=== PATIENT | female | born 1930 | race Caucasian/White ===

== ENCOUNTER → 2017-01-24 | Outpatient (CLI) | payer MEDICARE, OTHER ==
[2017-01-24 19:00] LABS: ALBUMIN 3.7 GM/DL (3.2-5.2); ALBUMIN/GLOBULIN RATIO 1.06 (1.00-1.93); ALKALINE PHOSPHATASE 81 U/L (45-117); ALT/SGPT 18 U/L (12-78); ANION GAP 8 MEQ/L (8-16); AST/SGOT 16 U/L (7-37); BILIRUBIN,TOTAL 0.3 MG/DL (0.2-1.0); BLOOD UREA NITROGEN 24 MG/DL (7-18); CARBON DIOXIDE LEVEL 29 MEQ/L (21-32); CHLORIDE LEVEL 99 MEQ/L (98-107); CREATININE FOR GFR 0.84 MG/DL (0.55-1.02); GLOMERULAR FILTRATION RATE > 60.0 (>32); GLUCOSE, FASTING 85 MG/DL (83-110); POTASSIUM SERUM 4.6 MEQ/L (3.5-5.1); SODIUM LEVEL 136 MEQ/L (136-145); TOTAL PROTEIN 7.2 GM/DL (6.4-8.2)
[2017-01-24 19:12] LABS: BASO % 0.5 % (0.0-1.0); EOS # 0.1 10^3/uL (0.0-0.50); IMMATURE GRANULOCYTE % 0.2 % (0-0); LYMPH % 14.8 % (24.0-44.0); MEAN CORPUSCULAR HGB CONC 32.4 g/dl (32.0-36.5); MEAN CORPUSCULAR VOLUME 86.6 fl (80.0-96.0); MONO # 0.9 10^3/uL (0.0-0.8); MONO % 13.3 % (0.0-5.0); NEUTROPHILS # 4.4 10^3/uL (1.8-7.7); NEUTROPHILS % 69.2 % (36.0-66.0); PLATELET COUNT, AUTOMATED 385 10^3/uL (150-450); WHITE BLOOD COUNT 6.4 10^3/uL (4.0-10.0)
== END ==
LOC: M WUC 10:40
PROVIDERS: ATTEND Family Medicine
DX: E55.9 Vitamin D deficiency, unspecified (principal); I10 Essential (primary) hypertension

== ENCOUNTER 2018-04-28 05:58 | Inpatient (IN) | payer MEDICARE, OTHER ==
[2018-04-28] MEDS ORDERED: PANT20TA2 PO (06:11)
[2018-04-28] MEDS ORDERED: DICL75TA PO (06:11)
[2018-04-28] MEDS ORDERED: CLOP75TA2 PO (06:11)
[2018-04-28] MEDS ORDERED: LOSA100T50 PO (06:11)
[2018-04-28] MEDS ORDERED: PRAV40TA2 PO (06:11)
--- NOTE | 2018-04-28 07:01 | REPVR ---
EXAM: CT Cervical Spine Without Contrast EXAM DATE/TIME: 04/28/2018 6:28 AM CLINICAL HISTORY: 87 years old, female; Injury or trauma; Fall; Late effect from previous injury; Abrasion; Additional info: Hematoma TECHNIQUE: Axial computed tomography images of the cervical spine without intravenous contrast. All CT scans at this facility use at least one of these dose optimization techniques: automated exposure control; mA and/or kV adjustment per patient size (includes targeted exams where dose is matched to clinical indication); or iterative reconstruction. Coronal and sagittal reformatted images were created and reviewed. COMPARISON: No relevant prior studies available. FINDINGS: Vertebrae: No acute fracture. Normal alignment. Discs/Spinal canal/Neural foramina: There are advanced multilevel degenerative changes including disc space narrowing, ventral ridging, uncovertebral joint arthropathy, and hypertrophic spur formation, all of which contribute to significant multilevel spinal canal and neural foraminal stenosis. Soft tissues: Unremarkable. Lungs: There are bilateral centrilobular emphysematous changes. There is presumed scarring at both lung apices, right worse than left. Vasculature: There are calcified atherosclerotic changes of the cervical carotid arteries. IMPRESSION: There are advanced multilevel degenerative changes including disc space narrowing, ventral ridging, uncovertebral joint arthropathy, and hypertrophic spur formation, all of which contribute to significant multilevel spinal canal and neural foraminal stenosis. Full evaluation of the intervertebral discs and intraspinal contents is limited with CT imaging. Clinical findings will determine the need for further evaluation with MRI imaging. Electronically signed by: Bear Hobbs On 04/28/2018 07:01:29 AM
--- NOTE | 2018-04-28 07:03 | REPVR ---
EXAM: CT Head Without Contrast EXAM DATE/TIME: 04/28/2018 6:28 AM CLINICAL HISTORY: 87 years old, female; Injury or trauma; Fall; Late effect from previous injury; Abrasion; Not specified; Additional info: Hematoma TECHNIQUE: Axial computed tomography images of the head/brain without contrast. All CT scans at this facility use at least one of these dose optimization techniques: automated exposure control; mA and/or kV adjustment per patient size (includes targeted exams where dose is matched to clinical indication); or iterative reconstruction. COMPARISON: No relevant prior studies available. FINDINGS: Brain: There is minimal right parietal subarachnoid hemorrhage. There is a very thin left temporoparietal subdural hematoma. There is no midline shift. Ventricles: Normal. No ventriculomegaly. Bones/joints: See Soft Tissues Finding. Sinuses: Visualized sinuses are unremarkable. No acute sinusitis. Mastoid air cells: Visualized mastoid air cells are unremarkable. No mastoid effusion. Soft tissues: There is a right frontal/parietal scalp hematoma. There is no underlying fracture. IMPRESSION: There is minimal right parietal subarachnoid hemorrhage. There is a very thin left temporoparietal subdural hematoma. There is no midline shift. Close clinical and imaging followup is recommended to confirm resolution following treatment. Electronically signed by: Bear Hobbs On 04/28/2018 07:03:40 AM
--- NOTE | 2018-04-28 07:04 | REP ---
Clinical: Syncope/near-syncopal episode . Comparison: None . Findings: The mediastinum and cardiac silhouette are stable and within normal limits for portable technique. The lung rascon demonstrate chronic-appearing interstitial changes without acute consolidation, effusion, or pneumothorax. Skeletal structures are intact. Impression: No acute cardiopulmonary process appreciated. Electronically Signed by Jose Francisco Cheung MD 04/28/2018 06:56 A
[2018-04-28 07:09] LABS: BASO # 0.1 10^3/uL (0.0-0.2); BASO % 0.2 % (0.0-1.0); EOS % 0.2 % (0.0-3.0); HEMATOCRIT 40.7 % (36.0-47.0); HEMOGLOBIN 13.1 g/dl (12.0-15.5); MEAN CORPUSCULAR HGB CONC 32.2 g/dl (32.0-36.5); MEAN CORPUSCULAR VOLUME 96.2 fl (80.0-96.0); MONO # 0.8 10^3/uL (0.0-0.8); MONO % 3.8 % (0.0-5.0); NEUTROPHILS # 20.4 10^3/uL (1.8-7.7); NEUTROPHILS % 94.2 % (36.0-66.0); PLATELET COUNT, AUTOMATED 274 10^3/uL (150-450); RED BLOOD COUNT 4.23 10^6/uL (4.00-5.40); WHITE BLOOD COUNT 21.6 10^3/uL (4.0-10.0)
[2018-04-28] MEDS ORDERED: ONDANSETRON 4MG/2ML VIAL (J2405) IV ONE (07:30)
[2018-04-28 07:58] LABS: LYMPH # 0.2 10^3/uL (1.5-4.5)
[2018-04-28 08:08] LABS: BLOOD UREA NITROGEN 43 MG/DL (7-18); CALCIUM LEVEL 8.7 MG/DL (8.8-10.2); CARBON DIOXIDE LEVEL 25 MEQ/L (21-32); CHLORIDE LEVEL 105 MEQ/L (98-107); CPK CREATINE PHOSPHOKINASE 101 U/L (26-192); CREATININE FOR GFR 0.94 MG/DL (0.55-1.30); GLOMERULAR FILTRATION RATE > 60.0 (>32); GLUCOSE, FASTING 100 MG/DL (70-100); MB/CK RELATIVE INDEX 1.29 (< OR =4); POTASSIUM SERUM 5.4 MEQ/L (3.5-5.1); SODIUM LEVEL 141 MEQ/L (136-145); TROPONIN I < 0.02 NG/ML (< 0.10)
[2018-04-28] MEDS ORDERED: NS 500 ML IV ONE ×2 (08:45→20:45)
[2018-04-28] MEDS ORDERED: patient comment (09:03)
[2018-04-28] MEDS ORDERED: ALEV220T26 PO (09:27)
[2018-04-28] MEDS ORDERED: REFR0.5D8 OU (09:27)
[2018-04-28] MEDS ORDERED: VITA400T PO (09:27)
[2018-04-28] MEDS ORDERED: ONDANSETRON 4MG/2ML VIAL (J2405) IV PRN (10:15)
[2018-04-28 11:05] VITALS: BP 104/58
--- NOTE | 2018-04-28 11:44 | ECGEPIP ---
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
[2018-04-28] MEDS ORDERED: SLF 3 ML SYR IV PRN (13:45)
[2018-04-28 15:05] LABS: FREE T3 1.6 PG/ML (2.2-4.0); FREE T4 1.05 NG/DL (0.76-1.46)
[2018-04-28 16:00] VITALS: BP 116/67
--- NOTE | 2018-04-28 16:39 | HPEPDOC ---
General Date of Admission Apr 28, 2018 at 10:02 Chief Complaint The patient is a 87-year-old female admitted with a reason for visit of Subarach noid Hemorrhage. History of Present Illness 87-year-old woman with a past medical history of hypertension, dyslipidemia, GERD, and recurrent TIAs presented to the ER after a fall at home. The patient and her son, who was at the bedside stated the patient was on the toilet having a bowel movement. The patient notes that she was feeling constipated and was straining.The next thing the patient and caregiver noticed was the patient falling forward. She states that she fell head first on the right side. The patient denied any recent complaints of fevers, chills, chest pain, palpitations, abdominal pain, or any jerking activity, tongue biting, and history of seizures. She was brought to the ER for further evaluation and management. In the ER, a CT scan of the head revealed minimal right parietal subarachnoid hemorrhage and a very thin left temporal parietal subdural hematoma. Transfer to [facility] was discussed with the patient and her son extensively at the [facility] by the ER provider and myself. However, the patient and her son state that they would not want any invasive measures to be done, and would like to monitor the patient at [facility]. Home Medications Scheduled Carboxymethylcellulose Sodium (Refresh Tears) 0.5 % Aravind, 1 DROP OU DAILY, (Reported) Cholecalciferol (Vitamin D3) 400 Unit Tab, 800 UNIT PO DAILY, (Reported) Losartan Potassium (Losartan Potassium) 100 Mg Tab, 100 MG PO DAILY, (Reported) Naproxen Sodium (Aleve) 220 Mg Tab, 220 MG PO QHS, (Reported) Pantoprazole Sodium (Pantoprazole Sodium) 20 Mg Tab, 20 MG PO DAILY, (Reported) Pravastatin Sod (Pravastatin Sodium) 40 Mg Tab, 40 MG PO QHS, (Reported) Scheduled PRN Diclofenac Sodium (Diclofenac Sodium Dr) 75 Mg Tab, 75 MG PO BID PRN for PAIN, (Reported) Allergies Coded Allergies: No Known Allergies (Unverified , 04/28/18) Past Medical History Medical History As noted in HPI. Social History * Smoker: Denies Alcohol: Denies Drugs: denies Review of Systems Other systems 10 point review of systems negative unless otherwise specified in HPI. Physical Examination General Exam: Positive: Alert, Cooperative, No Acute Distress Eye Exam: Positive: PERRLA ENT Exam: Positive: Mucous membr. moist/pink, Other ENT (contusion noted on the right side of the forehead above the eye.) Neck Exam: Negative: JVD Chest Exam: Positive: Clear to auscultation, Normal air movement Heart Exam: Positive: Rate Normal, Normal S1, Normal S2 Telemetry: Positive: Sinus Abdomen Exam: Positive: Soft; Negative: Tenderness Extremity Exam: Negative: Tenderness, Swelling Neuro Exam: Positive: Strength at 5/5 X4 ext Vital Signs Vital Signs Date Time Temp Pulse Resp B/P (MAP) Pulse Ox O2 Delivery O2 Flow Rate FiO2 04/28/18 16:00 98.1 93 18 116/67 (83) 95 04/28/18 10:53 Room Air Laboratory Data Labs 24H Laboratory Tests 2 04/28/18 06:57: Immature Granulocyte % (Auto) 0.6, White Blood Count 21.6H, Red Blood Count 4 .23, Hemoglobin 13.1, Hematocrit 40.7, Mean Corpuscular Volume 96.2H, Mean Corpuscular Hemoglobin 31.0, Mean Corpuscular Hemoglobin Concent 32.2, Red Cell Distribution Width 14.7H, Platelet Count 274, Neutrophils (%) (Auto) 94.2H, Lymphocytes (%) (Auto) 1.0L, Monocytes (%) (Auto) 3.8, Eosinophils (%) (Auto) 0.2, Basophils (%) (Auto) 0.2, Neutrophils # (Auto) 20.4H, Lymphocytes # (Auto) 0.2L, Monocytes # (Auto) 0.8, Eosinophils # (Auto) 0.0, Basophils # (Auto) 0.1, Nucleated Red Blood Cells % (auto) 0.0, Anion Gap 11, Glomerular Filtration Rate > 60.0, Blood Urea Nitrogen 43H, Creatinine 0.94, Sodium Level 141, Potassium Level 5.4H, Chloride Level 105, Carbon Dioxide Level 25, Calcium Level 8.7L, Total Creatine Kinase 101, Creatine Kinase MB 1.0, Creatine Kinase MB Relative Index 1.29, Troponin I < 0.02, Thyroid Stimulating Hormone (TSH) 7.660H, Free Thyroxine 1.05, Free Triiodothyronine 1.6L CBC/BMP Laboratory Tests 04/28/18 06:57 Red Blood Count 4.23, Mean Corpuscular Volume 96.2 H, Mean Corpuscular Hemoglobin 31.0, Mean Corpuscular Hemoglobin Concent 32.2, Red Cell Distribution Width 14.7 H, Neutrophils (%) (Auto) 94.2 H, Lymphocytes (%) (Auto) 1.0 L, Monocytes (%) (Auto) 3.8, Eosinophils (%) (Auto) 0.2, Basophils (%) (Auto) 0.2, Neutrophils # (Auto) 20.4 H, Lymphocytes # (Auto) 0.2 L, Monocytes # (Auto) 0.8, Eosinophils # (Auto) 0.0, Basophils # (Auto) 0.1, Calcium Level 8.7 L, Total Creatine Kinase 101 Plan / VTE VTE Prophylaxis Ordered?: Yes Plan Plan Traumatic Right parietal subarachnoid hemorrhage, left temporal parietal subdural hematoma CT scan of the head noted--- discussed transfer to [facility] with the patient and her son and they have declined this option as they do not want any invasive measures and would like the patient to be observed only. Patient with no new acute neurological deficits We will hold Plavix--risks, alternative options, and benefits associated with Plavix being withheld were also discussed at length. Patient/son has verbalized understanding of the same, and all portions were answered to her satisfaction. Serial neuro checks Neurology consulted History of recurrent TIAs Plavix on hold secondary to above. Continue statin Hypertension Continue losartan Dyslipidemia Continue statin GERD Continue PPI DVT prophylaxis SCDs/TEDs Code Status: DNR/DNI--MOLST form signed, dated, and placed in the chart. LAURA GARBER MD Apr 28, 2018 16:39
[2018-04-28] MEDS: SLF 3 ML SYR IV SCH ×2 (16:43→20:42)
[2018-04-28] MEDS: PANTOPRAZOLE 20 MG TAB PO SCH (17:48)
[2018-04-28] MEDS: VITAMIN D (CHOLECALCIFEROL) 400 INTERNATIONAL UNITS TAB PO SCH (17:49)
[2018-04-28 20:00] VITALS: BP 75/51
[2018-04-28 20:15] VITALS: BP 86/50
[2018-04-28] MEDS ORDERED: PRAVASTATIN 20 MG TAB PO SCH (21:00)
[2018-04-28 21:31] VITALS: BP 90/50
[2018-04-28 23:00] VITALS: BP 104/58
[2018-04-29] VITALS: BP 103/52
[2018-04-29 04:00] VITALS: BP 102/58
[2018-04-29] MEDS: SLF 3 ML SYR IV SCH (05:09)
[2018-04-29 05:11] LABS: HEMATOCRIT 32.1 % (36.0-47.0); MEAN CORPUSCULAR HGB CONC 33.3 g/dl (32.0-36.5); PLATELET COUNT, AUTOMATED 261 10^3/uL (150-450); RED BLOOD COUNT 3.45 10^6/uL (4.00-5.40); WHITE BLOOD COUNT 9.9 10^3/uL (4.0-10.0)
[2018-04-29 05:18] LABS: HEMOGLOBIN 10.7 g/dl (12.0-15.5)
[2018-04-29 05:40] LABS: CALCIUM LEVEL 7.8 MG/DL (8.8-10.2); CREATININE FOR GFR 1.1 MG/DL (0.55-1.30); GLOMERULAR FILTRATION RATE 50.3 (>32); POTASSIUM SERUM 3.9 MEQ/L (3.5-5.1)
--- NOTE | 2018-04-29 06:58 | CR ---
DATE OF CONSULTATION: 04/28/2018 REFERRING PHYSICIAN: Dr. Tico Jaimes REASON FOR CONSULTATION: Fall and small traumatic subarachnoid and subdural hemorrhage. HISTORY OF PRESENT ILLNESS: Milli Griffith is an 87-year-old woman who was admitted at [facility] after a fall. The patient takes Plavix. The patient states that she tripped and fell and hit her forehead on the ground. The patient states that she has a walker at home. The patient does seem to have cognitive deficits. I am currently not sure if her history is completely reliable. The patient initially stated that she lives by herself and her comes and checks up and talks to her once a week. A couple of minutes later the patient stated that she used to live in [place] and her and her daughter lives in [place] and she chose to come to [place] and her son lives with her. She denies any headaches, neck or back pain. She denies dysphagia, dysarthria, diplopia or urinary incontinence. The patient states that she has been in the hospital for the last one week. She denies any loss of consciousness. PAST MEDICAL HISTORY: Hypertension. Dyslipidemia. CURRENT MEDICATIONS: - Plavix 75 mg by mouth daily - losartan 100 mg by mouth daily - naproxen 220 mg by mouth daily - Protonix 20 mg by mouth daily - pravastatin 40 mg by mouth daily - vitamin D3 800 units by mouth daily SOCIAL HISTORY: She denies smoking, alcohol or illicit drugs. FAMILY HISTORY: Noncontributory. ALLERGIES: None. REVIEW OF SYSTEMS: All systems were reviewed with the patient and were found to be noncontributory except as mentioned is history of present illness. PHYSICAL EXAMINATION: Temperature 98.1, pulse 93, respiratory 18, blood pressure 116/67, 95% saturation on room air. HEART: Regular rate and rhythm. LUNGS: Clear to auscultation. ABDOMEN: Soft, nontender, nondistended. No pedal edema. No musculoskeletal abnormalities. No rash. No signs of meningeal irritation. The patient is awake, alert, oriented to self mostly. She is unable to tell me the date, year, name of city, state, country, name of president. She is able to tell me that it is Friday. She thinks that she is in [place]. She has normal speech comprehension and repetition. Extraocular muscles are intact. Visual rascon are full to confrontation. No facial weakness. Tongue and uvula are midline. 5/5 strength in all four extremities. Deep tendon reflexes are 2+ throughout. Normal sensation. There is no dysmetria. Her gait is unsteady. She states that she uses a walker at her baseline. DIAGNOSTIC STUDIES: CT scan of her head showed minimal right parietal, subarachnoid and left temporal and parietal subdural hematoma. CT scan of cervical spine showed multilevel cervical degenerative disc disease. Her CBC showed WBCs 21.6, hemoglobin 13.1, creatinine 0.9 and BUN 43. Serum sodium was 141. ASSESSMENT: 1. Post-traumatic minimal right parietal subarachnoid and left temporal and parietal subdural hematoma. 2. Suspected underlying cognitive impairment and dementia. PLAN: 1. Repeat CT scan of head after [address] scan of head. 2. Hold Plavix for 5-7 days. 3. Physical and occupational therapy. The patient was admitted at [facility] as the patient and her family declined transfer to [facility] and any surgical intervention, which she likely does not need. 4. CT angiography of head with contrast. 5. Follow with our office 1 month after hospital discharge.
[2018-04-29 08:00] VITALS: BP 123/67
[2018-04-29] MEDS: PANTOPRAZOLE 20 MG TAB PO SCH (09:40)
[2018-04-29] MEDS: VITAMIN D (CHOLECALCIFEROL) 400 INTERNATIONAL UNITS TAB PO SCH (09:40)
--- NOTE | 2018-04-29 17:14 | DS.PDOC ---
Discharge Summary General Date of Admission Apr 28, 2018 at 10:02 Date of Discharge 04/29/18 Specialist/Consultants Involve: MIGUEL SHIPMAN MD Discharge Summary PROCEDURES PERFORMED DURING STAY: None. ADMITTING/DISCHARGE DIAGNOSES: Traumatic Right parietal subarachnoid hemorrhage, left temporal parietal subdural hematoma Vasovagal syncope History of recurrent TIAs Hypertension Dyslipidemia GERD COMPLICATIONS/CHIEF COMPLAINT: Subarachnoid Hemorrhage. HISTORY OF PRESENT ILLNESS: . 87-year-old woman with a past medical history of hypertension, dyslipidemia, GERD, and recurrent TIAs presented to the ER after a fall at home. The patient and her son, who was at the bedside stated the patient was on the toilet having a bowel movement. The patient notes that she was feeling constipated and was straining.The next thing the patient and caregiver noticed was the patient falling forward. She states that she fell head first on the right side. The patient denied any recent complaints of fevers, chills, chest pain, palpitations, abdominal pain, or any jerking activity, tongue biting, and history of seizures. She was brought to the ER for further evaluation and management. In the ER, a CT scan of the head revealed minimal right parietal subarachnoid hemorrhage and a very thin left temporal parietal subdural hematoma. Transfer to [facility] was discussed with the patient and her son extensively at the bedside by the ER provider and myself. However, the patient and her son state that they would not want any invasive measures to be done, and would like to monitor the patient at [facility]. During hospitalization, the patient remained stable and did not complain of any acute neurological changes compared to her baseline. She denied any complaints of headache, lightheadedness, dizziness, blurring of vision, or any numbness/tingling/weakness of her extremities. Neurology was consulted and recommended a repeat CT scan of the head in the morning. However, the patient and her son have declined a repeat CT scan of the head and a CT angiogram as requested by neurology because they state that "they would not want to intervene anyway" given the patient's advanced age and would like to go home. I have extensively discussed the risks, benefits, and alternative options with the patient and her son at the bedside. They have verbalized understanding of the same, and wish to go home. I've advised them to follow up with a primary care physician within 7 days. The patient is also to stay off of Plavix for 7 days in the interim. The patient is to follow-up with neurology in one month. Lastly, the patient is to return to the ER for any acute emergencies. DISCHARGE MEDICATIONS: Please see below. ALLERGIES: Please see below. PHYSICAL EXAMINATION ON DISCHARGE: VITAL SIGNS: Please see below. General Exam: Positive: Alert, Cooperative, No Acute Distress Eye Exam: Positive: PERRLA ENT Exam: Positive: Mucous membr. moist/pink, Other ENT (contusion noted on the right side of the forehead above the eye.) Neck Exam: Negative: JVD Chest Exam: Positive: Clear to auscultation, Normal air movement Heart Exam: Positive: Rate Normal, Normal S1, Normal S2 Telemetry: Positive: Sinus Abdomen Exam: Positive: Soft; Negative: Tenderness Extremity Exam: Negative: Tenderness, Swelling Neuro Exam: Positive: Strength at 5/5 X4 ext LABORATORY DATA: Please see below. IMAGING: Clinical: Syncope/near-syncopal episode . Comparison: None . Findings: The mediastinum and cardiac silhouette are stable and within normal limits for portable technique. The lung rascon demonstrate chronic-appearing interstitial changes without acute consolidation, effusion, or pneumothorax. Skeletal structures are intact. Impression: No acute cardiopulmonary process appreciated EXAM: CT Cervical Spine Without Contrast EXAM DATE/TIME: 04/28/2018 6:28 AM CLINICAL HISTORY: 87 years old, female; Injury or trauma; Fall; Late effect from previous injury; Abrasion; Additional info: Hematoma TECHNIQUE: Axial computed tomography images of the cervical spine without intravenous contrast. All CT scans at this facility use at least one of these dose optimization techniques: automated exposure control; mA and/or kV adjustment per patient size (includes targeted exams where dose is matched to clinical indication); or iterative reconstruction. Coronal and sagittal reformatted images were created and reviewed. COMPARISON: No relevant prior studies available. FINDINGS: Vertebrae: No acute fracture. Normal alignment. Discs/Spinal canal/Neural foramina: There are advanced multilevel degenerative changes including disc space narrowing, ventral ridging, uncovertebral joint arthropathy, and hypertrophic spur formation, all of which contribute to significant multilevel spinal canal and neural foraminal stenosis. Soft tissues: Unremarkable. Lungs: There are bilateral centrilobular emphysematous changes. There is presumed scarring at both lung apices, right worse than left. Vasculature: There are calcified atherosclerotic changes of the cervical carotid arteries. IMPRESSION: There are advanced multilevel degenerative changes including disc space narrowing, ventral ridging, uncovertebral joint arthropathy, and hypertrophic spur formation, all of which contribute to significant multilevel spinal canal and neural foraminal stenosis. Full evaluation of the intervertebral discs and intraspinal contents is limited with CT imaging. Clinical findings will determine the need for further evaluation with MRI imaging. EXAM: CT Head Without Contrast EXAM DATE/TIME: 04/28/2018 6:28 AM CLINICAL HISTORY: 87 years old, female; Injury or trauma; Fall; Late effect from previous injury; Abrasion; Not specified; Additional info: Hematoma TECHNIQUE: Axial computed tomography images of the head/brain without contrast. All CT scans at this facility use at least one of these dose optimization techniques: automated exposure control; mA and/or kV adjustment per patient size (includes targeted exams where dose is matched to clinical indication); or iterative reconstruction. COMPARISON: No relevant prior studies available. FINDINGS: Brain: There is minimal right parietal subarachnoid hemorrhage. There is a very thin left temporoparietal subdural hematoma. There is no midline shift. Ventricles: Normal. No ventriculomegaly. Bones/joints: See Soft Tissues Finding. Sinuses: Visualized sinuses are unremarkable. No acute sinusitis. Mastoid air cells: Visualized mastoid air cells are unremarkable. No mastoid effusion. Soft tissues: There is a right frontal/parietal scalp hematoma. There is no underlying fracture. IMPRESSION: There is minimal right parietal subarachnoid hemorrhage. There is a very thin left temporoparietal subdural hematoma. There is no midline shift. Close clinical and imaging followup is recommended to confirm resolution following treatment. PROGNOSIS: Fair ACTIVITY: As tolerated. DIET: 2 g sodium diet DISCHARGE PLAN: DISPOSITION: 01 Home, Self-Care. DISCHARGE INSTRUCTIONS: Patient/son advised to have Mrs. Griffith to follow up with her primary care physician within 7 days. The patient is also to stay off of Plavix for 7 days in the interim. The patient is to follow-up with neurology in one month. Lastly, the patient is to return to the ER for any acute emergencies. DISCHARGE CONDITION: Stable. TIME SPENT ON DISCHARGE: Greater than 30 minutes. Vital Signs/I&Os Vital Signs Date Time Temp Pulse Resp B/P (MAP) Pulse Ox O2 Delivery O2 Flow Rate FiO2 04/29/18 08:00 99.0 68 18 123/67 (85) 97 04/28/18 10:53 Room Air I&O- Last 24 Hours up to 6 AM 04/29/18 06:00 Intake Total 1060 ml Output Total 200 ml Balance 860 ml Laboratory Data Labs 24H Laboratory Tests 2 04/29/18 04:03: Nucleated Red Blood Cells % (auto) 0.0, Anion Gap 8, Glomerular Filtration Rate 50.3, Blood Urea Nitrogen 50H, Creatinine 1.10, Sodium Level 142, Potassium Level 3.9#, Chloride Level 110H, Carbon Dioxide Level 24, Calcium Level 7.8L CBC/BMP Laboratory Tests 04/29/18 04:03 Red Blood Count 3.45 L, Mean Corpuscular Volume 93.0, Mean Corpuscular Hemoglobin 31.0, Mean Corpuscular Hemoglobin Concent 33.3, Red Cell Distribution Width 15.0 H, Calcium Level 7.8 L Discharge Medications Scheduled Carboxymethylcellulose Sodium (Refresh Tears) 0.5 % Aravind, 1 DROP OU DAILY, (Reported) Cholecalciferol (Vitamin D3) 400 Unit Tab, 800 UNIT PO DAILY, (Reported) Losartan Potassium (Losartan Potassium) 100 Mg Tab, 100 MG PO DAILY, (Reported) Naproxen Sodium (Aleve) 220 Mg Tab, 220 MG PO QHS, (Reported) Pantoprazole Sodium (Pantoprazole Sodium) 20 Mg Tab, 20 MG PO DAILY, (Reported) Pravastatin Sod (Pravastatin Sodium) 40 Mg Tab, 40 MG PO QHS, (Reported) Scheduled PRN Diclofenac Sodium (Diclofenac Sodium Dr) 75 Mg Tab, 75 MG PO BID PRN for PAIN, (Reported) Allergies Coded Allergies: No Known Allergies (Unverified , 04/28/18) LAURA GARBER MD Apr 29, 2018 17:14
== END 2018-04-29 13:20 | disposition home or self-care (01) | DRG 87 ==
LOC: M ED 05:58 → M ED INP 10:02 → M PCU 11:00
PROVIDERS: ADMIT Internal Medicine; ATTEND Internal Medicine
DX: S06.6X0A Traumatic subarachnoid hemorrhage without loss of consciousness, initial encounter (principal); S06.5X0A Traumatic subdural hemorrhage without loss of consciousness, initial encounter; F03.90 Unspecified dementia, unspecified severity, without behavioral disturbance, psychotic disturbance, mood disturbance, and anxiety; G31.84 Mild cognitive impairment of uncertain or unknown etiology; I10 Essential (primary) hypertension; E78.5 Hyperlipidemia, unspecified; K21.9 Gastro-esophageal reflux disease without esophagitis; R55 Syncope and collapse; Z86.711 Personal history of pulmonary embolism; W18.30XA Fall on same level, unspecified, initial encounter; Y92.009 Unspecified place in unspecified non-institutional (private) residence as the place of occurrence of the external cause; Z79.899 Other long term (current) drug therapy; Z66 Do not resuscitate

== ENCOUNTER → 2019-02-10 | Outpatient (REF) | payer MEDICARE, OTHER ==
[~2019-02-10] MED LIST: ALEV220T26 PO; CLOP75TA2 PO; DICL75TA PO; LOSA100T50 PO; PANT20TA2 PO; PRAV40TA2 PO; REFR0.5D8 OU; VITA400T PO; patient comment
[2019-02-10 18:54] LABS: APPEARANCE, URINE CLEAR (CLEAR); BACTERIA, URINE AUTO 1+ (NEGATIVE); BILIRUBIN, URINE AUTO NEGATIVE (NEGATIVE); BLOOD, URINE BLOOD NEGATIVE (NEGATIVE); COLOR, URINE YELLOW (YELLOW); GLUCOSE, URINE (UA) AUTO NEGATIVE (NEGATIVE); KETONE, URINE AUTO NEGATIVE (NEGATIVE); LEUKOCYTE ESTERASE, URINE AUTO 2+ (NEGATIVE); MUCUS, URINE SMALL (NEGATIVE); NITRITE, URINE AUTO NEGATIVE (NEGATIVE); PROTEIN, URINE AUTO NEGATIVE (NEGATIVE); RBC, URINE AUTO 3 /HPF (0-3); SPECIFIC GRAVITY URINE AUTO 1.016 (1.002-1.035); SQUAMOUS EPITHELIAL CELL UR AU 1 /HPF (0-6); TRANSITIONAL EPITHELIAL AUTO <1 /HPF; UROBILINOGEN, URINE AUTO 0.2 mg/dL (0.0-2.0); WBC, URINE AUTO 53 /HPF (0-3)
== END ==
LOC: M LAB REF 18:13
PROVIDERS: ATTEND Family Medicine
DX: R35.0 Frequency of micturition (principal)

== ENCOUNTER 2019-05-07 09:28 | Emergency (ER) | payer MEDICARE, OTHER ==
[2019-05-07 09:34] VITALS: BP 123/51
[2019-05-07] MEDS ORDERED: CLOP75TA2 PO (09:45)
== END 2019-05-07 10:44 | disposition home or self-care (01) ==
LOC: EDBD 09:28 → M ED 09:28
DX: R53.1 Weakness (principal); W19.XXXA Unspecified fall, initial encounter; Y92.099 Unspecified place in other non-institutional residence as the place of occurrence of the external cause; Y93.9 Activity, unspecified; Y99.9 Unspecified external cause status; I10 Essential (primary) hypertension; Z86.73 Personal history of transient ischemic attack (TIA), and cerebral infarction without residual deficits; K21.9 Gastro-esophageal reflux disease without esophagitis; Z79.899 Other long term (current) drug therapy

== ENCOUNTER → 2019-05-19 | Outpatient (CLI) | payer MEDICARE, OTHER ==
--- NOTE | 2019-05-19 09:42 | REP ---
Clinical: Pain. Recent trauma. Technique: AP, lateral, bilateral oblique views of the left ankle. Findings: Age-related osteopenia and generalized degenerative changes are appreciated along with peripheral vascular disease. No obvious acute fracture or dislocation is appreciated. Ankle mortise intact. Impression: Age-related changes. No acute fracture or dislocation. Electronically Signed by Jose Francisco Cheung MD 05/19/2019 09:34 A
== END ==
LOC: M WUC 09:19
PROVIDERS: ATTEND Family Medicine
DX: M79.662 Pain in left lower leg (principal)

== ENCOUNTER 2020-07-28 20:34 | Inpatient (IN) | payer MEDICARE, OTHER ==
[~2020-07-28] VITALS: Ht 160 cm; Wt 60.6 kg
[~2020-07-28 20:34] MED LIST changes: -PANT20TA2 PO; +PANT20TA6 PO
[2020-07-28 21:10] LABS: BASO % 0.4 % (0.0-1.0); EOS # 0.2 10^3/uL (0.0-0.5); EOS % 3.1 % (0.0-3.0); HEMATOCRIT 34.5 % (36.0-47.0); LYMPH % 13.3 % (24.0-44.0); MEAN CORPUSCULAR HEMOGLOBIN 31.1 pg (27.0-33.0); MEAN CORPUSCULAR HGB CONC 31.9 g/dl (32.0-36.5); MEAN CORPUSCULAR VOLUME 97.5 fl (80.0-96.0); MONO % 14.3 % (2.0-8.0); NEUTROPHILS # 4.9 10^3/uL (1.5-8.5); NEUTROPHILS % 68.6 % (36.0-66.0); PLATELET COUNT, AUTOMATED 188 10^3/uL (150-450); RED BLOOD COUNT 3.54 10^6/uL (4.00-5.40); WHITE BLOOD COUNT 7.2 10^3/uL (4.0-10.0)
[2020-07-28] MEDS ORDERED: LOSA50TA88 PO (21:11)
[2020-07-28] MEDS ORDERED: med rec comment (21:12)
[2020-07-28 21:30] LABS: INR 1.05; PARTIAL THROMBOPLASTIN TIME 21.1 SECONDS (24.2-38.5); PROTHROMBIN TIME 13.9 SECONDS (12.5-14.3)
[2020-07-28] MEDS ORDERED: ISOVUE-370 76% 100ML VIAL As Ordered ONE (21:37)
[2020-07-28 21:41] LABS: ALBUMIN 2.9 GM/DL (3.2-5.2); ALT/SGPT 27 U/L (12-78); BILIRUBIN,DIRECT < 0.1 MG/DL (0.0-0.2); BILIRUBIN,TOTAL 0.4 MG/DL (0.2-1.0); CK-MB VALUE MASS < 1.0 NG/ML (<3.6); CPK CREATINE PHOSPHOKINASE 114 U/L (26-192); LIPASE 41 U/L (73-393); MB/CK RELATIVE INDEX 0.88 (< OR =4); TOTAL PROTEIN 6.4 GM/DL (6.4-8.2); TROPONIN I < 0.02 NG/ML (< 0.10)
--- NOTE | 2020-07-28 21:43 | ECGEPIP ---
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
[2020-07-28 21:50] LABS: RSV AMPLIFICATION NEGATIVE (NEGATIVE)
--- NOTE | 2020-07-28 23:00 | REPVR ---
PROCEDURE INFORMATION: Exam: CT Head Without Contrast Exam date and time: 07/28/2020 9:59 PM Age: 89 years old Clinical indication: Syncope and collapse; Additional info: Syncope, ? seizure activity TECHNIQUE: Imaging protocol: Computed tomography of the head without contrast. Radiation optimization: All CT scans at this facility use at least one of these dose optimization techniques: automated exposure control; mA and/or kV adjustment per patient size (includes targeted exams where dose is matched to clinical indication); or iterative reconstruction. COMPARISON: CT Head without contrast 04/28/2018 6:15 AM FINDINGS: Brain: There is no evidence of intracranial bleed. There is mild enlargement of the ventricles and cerebral sulci consistent with mild diffuse atrophy. There is low density at the external capsule and insular cortex consistent with chronic ischemic changes and very similar to 20 19 exam. Paranasal sinuses: Clear paranasal sinuses. Mastoid air cells: Clear mastoid air cells. Vasculature: There is calcification of carotid siphon bilaterally consistent with atherosclerotic changes. Bones/joints: There is no evidence of fracture. Soft tissues: Unremarkable. IMPRESSION: Mild atrophy. Electronically signed by: Francisco Arzola On 07/28/2020 23:00:03 PM
--- NOTE | 2020-07-28 23:26 | REPVR ---
PROCEDURE INFORMATION: Exam: CT Abdomen And Pelvis With Contrast Exam date and time: 07/28/2020 9:59 PM Age: 89 years old Clinical indication: Condition or disease; Intestinal condition; GI bleed TECHNIQUE: Imaging protocol: Computed tomography of the abdomen and pelvis with contrast. Radiation optimization: All CT scans at this facility use at least one of these dose optimization techniques: automated exposure control; mA and/or kV adjustment per patient size (includes targeted exams where dose is matched to clinical indication); or iterative reconstruction. Contrast material: ISOVUE 370; Contrast volume: 100 ml; Contrast route: INTRAVENOUS (IV); COMPARISON: No relevant prior studies available. FINDINGS: Lungs: There is mild dependent atelectasis in both lower lobes. Incidental note is made of small calcified granulomas in both lower lobes. The lungs were not fully imaged. Heart: No cardiomegaly or pericardial effusion is noted. There are coronary artery calcifications. Liver: The left hepatic lobe is heterogeneous in appearance. The contour of the liver is smooth. No hepatomegaly. Gallbladder and bile ducts: No calcified gallstones are noted. No gallbladder wall thickening, pericholecystic fluid, or pericholecystic inflammatory changes are identified. There is mild left intrahepatic biliary ductal dilation. The common bile duct is dilated and measures 12 mm in diameter at the level of the ann marie hepatis. No calcified stones are seen in the common bile duct. Pancreas: Normal. No dilation of the main pancreatic duct is noted. Spleen: Normal. No splenomegaly is noted. Adrenal glands: Normal. No adrenal mass is noted. Kidneys and ureters: The kidneys are normal in appearance. No renal lesion is noted. No stones are noted in the kidneys or ureters. There is no hydronephrosis or hydroureter. There are no wedge-shaped areas of low attenuation in the kidneys to suggest pyelonephritis. There is no renal abscess or perinephric fluid collection. Stomach and bowel: There is circumferential thickening of the wall of the gastric antrum with mucosal enhancement and submucosal edema, which is compatible with antral gastritis (image 25 of the coronal series 202). There is a periampullary duodenal diverticulum and colonic diverticulosis without evidence for diverticulitis. There is no evidence for a bowel obstruction, colitis, pneumatosis intestinalis, intussusception, volvulus, or perforated viscus. There is a moderate amount of formed stool in the colon. Appendix: Normal. There is no evidence for appendicitis. Intraperitoneal space: No free air. No ascites. No abscess. Retroperitoneal space: No fluid collection. No mass. Vasculature: No abdominal aortic aneurysm. Extensive atherosclerotic calcifications are present. No occlusion of the celiac artery, superior mesenteric artery, inferior mesenteric artery, renal arteries, or iliac arteries is noted. The portal veins, splenic vein, superior mesenteric vein, inferior mesenteric vein, and renal veins are patent. Lymph nodes: There is a subcentimeter calcified distal periesophageal lymph node, which represents a calcified granuloma. No abnormally enlarged lymph nodes measuring greater than 1 cm in short axis are noted. Urinary bladder: The distended urinary bladder is normal in appearance. No stones or masses are seen in the bladder. Reproductive: There has been a hysterectomy. The ovaries are unremarkable. Bones/joints: There is no fracture or dislocation. No suspicious osteolytic or osteoblastic lesion. There is a moderate levoscoliosis of lumbar spine and degenerative changes in the lower thoracic spine and lumbar spine. 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 There are degenerative changes involving the pubic symphysis and sacroiliac joints. There is severe osteoarthritis involving both 1st carpometacarpal joints and the left triscaphe joint. Soft tissues: There is a calcified granuloma in the subcutaneous tissues lateral to the right hip. There is also edema in the subcutaneous tissues lateral to the right hip. No drainable soft tissue fluid collection is noted. There is severe fatty atrophy of the paraspinal muscles in the lumbosacral region. IMPRESSION: 1. Antral gastritis. 2. Duodenal and colonic diverticulosis without evidence for diverticulitis. 3. Mild left intrahepatic biliary ductal dilation and dilation of the common bile duct. Electronically signed by: George Bernal On 07/28/2020 23:26:40 PM
[2020-07-28] MEDS ORDERED: NS 1,000 ML IV ONE (23:50)
[2020-07-29] MEDS ORDERED: PANTOPRAZOLE 40MG VIAL (C9113 PER 1) IV SCH (01:05)
[2020-07-29] MEDS ORDERED: MOM 30ML SUSPENSION UDC PO PRN (01:05)
[2020-07-29] MEDS ORDERED: MAALOX 30 ML SUSP *UDC PO PRN (01:05)
--- NOTE | 2020-07-29 01:14 | HPEPDOC ---
[facility] Medical History & Physical Date of Admission Jul 29, 2020 Date of Service: Jul 29, 2020 History and Physical CHIEF COMPLAINT: Blood in stool HISTORY OF PRESENT ILLNESS: 89-year-old female history of hyperlipidemia, hypertension, subarachnoid hemorrhage in 2019, multiple TIAs who presents to the hospital because of a one- week history of bright red blood in her stools. I'm told by ED staff that when she presented she was covered with bloody loose stools. She tells me that she noticed blood with every bowel movement approximately for the past week but she didn't feel like coming to the hospital believing that the bleeding would subside eventually she decided to come in after a large bloody bowel movement prior to presentation. She tells me that for the past few hours since being here she has not had any more bleeding and she feels well. She denies any dizziness, blurry vision, chest pain, shortness of breath, fevers or chills and denies bleeding anywhere else including in the urine or vaginal bleeding. Dr. Townsend had a discussion with her son who is healthcare proxy reiterated her DNR/DNI status and requested for limited medical interventions. I myself also discussed this with the patient herself and she gave me the same information that she would not be interested in any procedural intervention and would only be interested in receiving blood sugar checked continue to bleed and its deemed necessary. Patient will be admitted to the medical service for management of lower GI bleeding PAST MEDICAL/SURGICAL HISTORY: Hyperlipidemia Hypertension Multiple TIAs from history Subarachnoid hemorrhage 2019 GERD SOCIAL HISTORY: Denies alcohol use Denies tobacco use Denies illicit drug use FAMILY HISTORY: Reviewed and none contributory to this admission ALLERGIES: Please see below. REVIEW OF SYSTEMS: 10 point review of systems complete all negative otherwise stated in HPI HOME MEDICATIONS: Please see below. PHYSICAL EXAMINATION: Constitutional: Awake and alert, in no apparent distress ENT: Sclera are clear. Mucosa is moist. Respiratory: Lungs CTA bilaterally. No respiratory distress. Cardiovascular: RRR S1 and S2 are normal, no murmur Gastrointestinal: Abdomen is soft, non distended, non tender, BS present. I did not witness this but I was told by ED staff that when she presented she was covered with bloody loose stools. Musculoskeletal: No lower extremity edema. Neurologic: No focal neurological deficit. Mental Status: A&O x3, normal affect Skin: No visible rashes LABORATORY DATA: See below. IMAGING: See chart MICROBIOLOGY: Please see below. ASSESSMENT/PLAN 89-year-old female history of hypertension, hyperlipidemia, GERD, recurrent TIAs, and a history of subarachnoid hemorrhage in 2019 who presents with a reported one week history of bright red blood per rectum with every bowel movement. Patient wishes to have limited medical interventions but accepts rece iving blood if needed. Patient admitted for monitoring of GI bleed and transfusing as necessary. # Suspected lower GI bleed: Trend HH q6h, Protonix IV twice a day. Sucralfate TID. Hemoglobin 11 on admission. Patient endorsed wanting limited medical interventions in terms of procedures she is interested in blood if needed. Transfuse when necessary for hemoglobin less than 8. # Hypertension: Hold home losartan given borderline blood pressure. Monitor and titrate # Recurrent TIA as well as history of subarachnoid hemorrhage 2019: Hold Plavix in the setting of lower GI bleed. continue statin # Hyperlipidemia: Continue pravastatin # DVT prophylaxis: SCDs only for lower GI bleed A Yousef Hospitalist Vital Signs Vital Signs Date Time Temp Pulse Resp B/P (MAP) Pulse Ox O2 Delivery O2 Flow Rate FiO2 07/28/20 23:30 98.0 69 20 96/52 (67) 95 Room Air Laboratory Data Labs 24H Laboratory Tests 2 07/28/20 20:55: Immature Granulocyte % (Auto) 0.3, Neutrophils (%) (Auto) 68.6H, Lymphocytes (%) (Auto) 13.3L, Monocytes (%) (Auto) 14.3H, Eosinophils (%) (Auto) 3.1H, Basophils (%) (Auto) 0.4, Neutrophils # (Auto) 4.9, Lymphocytes # (Auto) 1.0L, Monocytes # (Auto) 1.0H, Eosinophils # (Auto) 0.2, Basophils # (Auto) 0.0, Nucleated Red Blood Cells % (auto) 0.0, Prothrombin Time 13.9, Prothromb Time International Ratio 1.05, Activated Partial Thromboplast Time 21.1L, Total Bilirubin 0.4, Direct Bilirubin < 0.1, Aspartate Amino Transf (AST/SGOT) 31, Alanine Aminotransferase (ALT/SGPT) 27, Alkaline Phosphatase 92, Total Creatine Kinase 114, Creatine Kinase MB < 1.0, Creatine Kinase MB Relative Index 0.88, Troponin I < 0.02, Total Protein 6.4, Albumin 2.9L, Albumin/Globulin Ratio 0.8L, Lipase 41L 07/28/20 20:56: Coronavirus (COVID-19)(PCR) NEGATIVE, Influenza Type A (RT-PCR) NEGATIVE, Influenza Type B (RT-PCR) NEGATIVE, Respiratory Syncytial Virus (PCR) NEGATIVE 07/28/20 20:58: POC Glucose (Misc Panel) 132H, POC Sodium (Misc Panel) 140, POC Potassium (Misc Panel) 4.4, POC Chloride (Misc Panel) 103, POC Total CO2 (Misc Panel) 29.0H, POC Blood Urea Nitrogen (Misc Panel 29H, POC Ionized Calcium (Misc Panel) 4.8, POC Creatinine (Misc Panel) 1.1, POC Hematocrit (Misc Panel) 34.0L CBC/BMP Laboratory Tests 07/28/20 20:55 Home Medications Scheduled Carboxymethylcellulose Sodium (Refresh Tears) 0.5 % Aravind, 1 DROP OU DAILY Clopidogrel Bisulfate (Clopidogrel) 75 Mg Tablet, 75 MG PO DAILY Losartan Potassium (Losartan Potassium) 50 Mg Tablet, 50 MG PO DAILY Pantoprazole Sodium (Pantoprazole Sodium) 20 Mg Tab, 20 MG PO DAILY Pravastatin Sodium (Pravastatin Sodium) 40 Mg Tab, 40 MG PO QHS Scheduled PRN Diclofenac Sodium (Diclofenac Sodium) 75 Mg Tab, 75 MG PO BID PRN for PAIN Miscellaneous Medications [med rec comment] unable to verify with pt. used external med history Allergies Coded Allergies: No Known Allergies (Unverified , 04/28/18) A-FIB/CHADSVASC A-FIB History Current/History of A-Fib/PAF?: No YUNIOR LEVI MD Jul 29, 2020 01:14
[2020-07-29] MEDS: PANTOPRAZOLE 40MG VIAL (C9113 PER 1) IV SCH ×2 (02:12→15:20)
[2020-07-29 02:40] VITALS: BP 110/69
[2020-07-29 06:00] VITALS: BP 122/61
[2020-07-29 07:27] LABS: HEMATOCRIT 32.7 % (36.0-47.0); HEMOGLOBIN 10.6 g/dl (12.0-15.5); MEAN CORPUSCULAR HEMOGLOBIN 31.1 pg (27.0-33.0); MEAN CORPUSCULAR HGB CONC 32.4 g/dl (32.0-36.5); MEAN CORPUSCULAR VOLUME 95.9 fl (80.0-96.0); PLATELET COUNT, AUTOMATED 185 10^3/uL (150-450); RED BLOOD COUNT 3.41 10^6/uL (4.00-5.40); WHITE BLOOD COUNT 6.9 10^3/uL (4.0-10.0)
[2020-07-29 07:54] LABS: BLOOD UREA NITROGEN 24 MG/DL (7-18); CALCIUM LEVEL 8.4 MG/DL (8.8-10.2); CARBON DIOXIDE LEVEL 25 MEQ/L (21-32); CHLORIDE LEVEL 110 MEQ/L (98-107); CREATININE FOR GFR 0.67 MG/DL (0.55-1.30); GLOMERULAR FILTRATION RATE > 60.0 (>32); GLUCOSE, FASTING 91 MG/DL (70-100); POTASSIUM SERUM 4.2 MEQ/L (3.5-5.1); SODIUM LEVEL 141 MEQ/L (136-145)
--- NOTE | 2020-07-29 08:12 | IPNPDOC ---
Subjective Date Seen The patient was seen on 07/29/20. Subjective Chief Complaint/HPI Ms. Griffith reports that she feels well today; she has no pain or discomfort. She also has not noticed any more blood per rectum since she came to the hospital. Nursing reports that she has been doing well too. They state that she is incontinent of urine, but did have one void on the bed soto without any blood noted. They do not think she eats and drinks well all the time, but will encourage oral intake. General: Reports: Normal Appetite Constitutional: Denies: Chills, Fever Pulmonary: Denies: Dyspnea, Cough Cardiovascular: Denies: Chest Pain, Edema Gastrointestinal: Denies: Nausea, Abdominal Pain Genitourinary: Reports: Incontinence; Denies: Dysuria, Hematuria Objective Physical Examination General Exam: Positive: Alert (she was fiddling with the sanitizing wipes and trying to get them open, but could not. She asked me if I would assist her with opening them. ), Cooperative, No Acute Distress Eye Exam: Positive: Conjunctiva & lids normal; Negative: Sclera icteric ENT Exam: Positive: Mucous membr. moist/pink Neck Exam: Negative: JVD, Lymphadenopathy Chest Exam: Positive: Clear to auscultation, Normal air movement Heart Exam: Positive: Rate Normal, Normal S1, Normal S2; Negative: Murmurs Abdomen Exam: Positive: Normal bowel sounds, Soft; Negative: Tenderness (including deeper palpation in the epigastric area and the lower quadrants bilaterally) Extremity Exam: Positive: Other (her right great toe is dislocated because of a severe bunion); Negative: Edema Psych Exam: Positive: Mood NL; Negative: Memory Intact Assessment /Plan Problems (1) Acute blood loss anemia Status: Acute Discussed With: Nurse, Family with Pt Consent Problem Specific Plan: Repeat Labs Problem Text: Based on the CT scan, I suspect that the bleeding is either diverticular or possibly from antral gastritis. Her Hb has dropped only 0.4mg/dL in the last ~11 hours. This is good, however, I am not certain that she is fully hydrated. We will work on making she is hydrated and monitor the trend. (2) Lower GI bleed Status: Acute Discussed With: Nurse, Family with Pt Consent Problem Specific Plan: Repeat Labs Problem Text: As the bowel movements were reportedly frankly bloody, LGI bleeding seems more likely. She has not had any BRBPR since she arrived at our facility. Will continue to monitor. (3) Prerenal acute renal failure Response to Treatment: Improving Discussed With: Nurse, Family with Pt Consent Problem Text: She was a little dry when she came in last night. She has improved a little this morning. I saw that she was drinking the liquids on her breakfast tray. I will add gentle fluids to help augment. I specifically asked nursing to get me the best I/O that they can. If she is balanced and doing well, I will stop the fluids. I don't want to hemodilute her and then end up transfusing. However, I also don't want to have her dry and assume that she is doing ok. I'd like to get her as euvolemic as possible so we can determine what her Hb status really is. Plan/VTE VTE Prophylaxis Ordered?: Yes (SCDs are in place) VTE Exclusion Pharmacological: Active Bleeding Plan IVF: Initiate Diet: Continue Current Advance Directives: DNR VS, I&O, 24H, Fishbone Vital Signs/I&O Vital Signs Date Time Temp Pulse Resp B/P (MAP) Pulse Ox O2 Delivery O2 Flow Rate FiO2 07/29/20 06:00 98.2 63 18 122/61 (81) 96 Room Air I&O- Last 24 Hours up to 6 AM 07/29/20 06:00 Intake Total 1000 ml Output Total 0 ml Balance 1000 ml Laboratory Data 24H LABS Laboratory Tests 2 07/28/20 20:55: Immature Granulocyte % (Auto) 0.3, Neutrophils (%) (Auto) 68.6H, Lymphocytes (%) (Auto) 13.3L, Monocytes (%) (Auto) 14.3H, Eosinophils (%) (Auto) 3.1H, Basophils (%) (Auto) 0.4, Neutrophils # (Auto) 4.9, Lymphocytes # (Auto) 1.0L, Monocytes # (Auto) 1.0H, Eosinophils # (Auto) 0.2, Basophils # (Auto) 0.0, Nucleated Red Blood Cells % (auto) 0.0, Prothrombin Time 13.9, Prothromb Time International Ratio 1.05, Activated Partial Thromboplast Time 21.1L, Total Bilirubin 0.4, Direct Bilirubin < 0.1, Aspartate Amino Transf (AST/SGOT) 31, Alanine Aminotransferase (ALT/SGPT) 27, Alkaline Phosphatase 92, Total Creatine Kinase 114, Creatine Kinase MB < 1.0, Creatine Kinase MB Relative Index 0.88, Troponin I < 0.02, Total Protein 6.4, Albumin 2.9L, Albumin/Globulin Ratio 0.8L, Lipase 41L 07/28/20 20:56: Coronavirus (COVID-19)(PCR) NEGATIVE, Influenza Type A (RT-PCR) NEGATIVE, Influenza Type B (RT-PCR) NEGATIVE, Respiratory Syncytial Virus (PCR) NEGATIVE 07/28/20 20:58: POC Glucose (Misc Panel) 132H, POC Sodium (Misc Panel) 140, POC Potassium (Misc Panel) 4.4, POC Chloride (Misc Panel) 103, POC Total CO2 (Misc Panel) 29.0H, POC Blood Urea Nitrogen (Misc Panel 29H, POC Ionized Calcium (Misc Panel) 4.8, POC Creatinine (Misc Panel) 1.1, POC Hematocrit (Misc Panel) 34.0L 07/29/20 07:11: Nucleated Red Blood Cells % (auto) 0.0, Anion Gap 6L, Glomerular Filtration Rate > 60.0, Calcium Level 8.4L CBC/BMP Laboratory Tests 07/28/20 20:55 07/29/20 07:11 Sebas Reno MD Jul 29, 2020 08:12
[2020-07-29] MEDS: D5W/0.45% SODIUM CHLORIDE 1,000 ML IV SCH (09:28)
[2020-07-29] MEDS: DOCUSATE SODIUM 100MG CAPSULE PO SCH ×2 (09:28→20:46)
[2020-07-29] MEDS: SUCRALFATE 1 GM TAB PO SCH ×3 (09:28→20:46)
[2020-07-29 12:02] LABS: HEMATOCRIT 31.1 % (36.0-47.0); HEMOGLOBIN 10.3 g/dl (12.0-15.5)
[2020-07-29 14:00] VITALS: BP 121/65
[2020-07-29 18:41] LABS: HEMATOCRIT 30.8 % (36.0-47.0); HEMOGLOBIN 9.8 g/dl (12.0-15.5)
[2020-07-29 20:00] VITALS: BP 146/79
[2020-07-29] MEDS: PRAVASTATIN 20 MG TAB PO SCH (20:46)
[2020-07-30 00:28] LABS: HEMATOCRIT 29.7 % (36.0-47.0); HEMOGLOBIN 9.6 g/dl (12.0-15.5)
[2020-07-30] MEDS: PANTOPRAZOLE 40MG VIAL (C9113 PER 1) IV SCH ×2 (02:04→14:38)
[2020-07-30 06:00] VITALS: BP 160/78
[2020-07-30 06:12] LABS: HEMATOCRIT 30.3 % (36.0-47.0); HEMOGLOBIN 9.7 g/dl (12.0-15.5)
[2020-07-30 06:30] LABS: ALBUMIN 2.6 GM/DL (3.2-5.2); BLOOD UREA NITROGEN 17 MG/DL (7-18); CALCIUM LEVEL 8.3 MG/DL (8.8-10.2); CARBON DIOXIDE LEVEL 23 MEQ/L (21-32); CHLORIDE LEVEL 111 MEQ/L (98-107); CREATININE FOR GFR 0.88 MG/DL (0.55-1.30); GLOMERULAR FILTRATION RATE > 60.0 (>32); GLUCOSE, FASTING 94 MG/DL (70-100); PHOSPHORUS LEVEL 2.2 MG/DL (2.5-4.9); POTASSIUM SERUM 4.1 MEQ/L (3.5-5.1); SODIUM LEVEL 139 MEQ/L (136-145)
[2020-07-30] MEDS: D5W/0.45% SODIUM CHLORIDE 1,000 ML IV SCH (09:04)
[2020-07-30] MEDS: DOCUSATE SODIUM 100MG CAPSULE PO SCH ×2 (09:05→20:24)
[2020-07-30] MEDS: LOSARTAN 50MG TABLET PO SCH (09:05)
[2020-07-30] MEDS: SUCRALFATE 1 GM TAB PO SCH ×3 (09:06→20:26)
[2020-07-30 12:06] LABS: HEMATOCRIT 30.7 % (36.0-47.0); HEMOGLOBIN 9.8 g/dl (12.0-15.5)
--- NOTE | 2020-07-30 12:11 | IPNPDOC ---
Text Note Date of Service The patient was seen on 07/30/20. NOTE Subjective: No any acute events overnight. Patient denies any fever, chills, n ausea, vomiting, diarrhea or dysuria. Objective: GENERAL APPEARANCE: NAD HEENT: no scleral icterus, no JVD, EOMI CARDIOVASCULAR: S1S2 LUNGS: CTA ABDOMEN: soft & not tender w palpitation MUSCULOSKELETAL: no cyanosis, no swelling INTEGUMENT: no generalized pallor NEUROLOGICAL: cranial nerve function from 2-12 intact intact, follows commands, speech not dysarthric ASSESSMENT/PLAN 89-year-old female history of hypertension, hyperlipidemia, GERD, recurrent TIAs, and a history of subarachnoid hemorrhage in 2019 who presents with a reported one week history of bright red blood per rectum with every bowel movement. Patient wishes to have limited medical interventions but accepts receiving blood if needed. Patient admitted for monitoring of GI bleed and transfusing as necessary. Acute anemia secondary to GI bleed Hemoglobin stable of 9.7 Continue IV Protonix, sucralfate 3 times a day Patient refused colonoscopy and endoscopy in the morning Hypertension Resume losartan History of TIA with history of subarachnoid hemorrhage 2018 Plavix on hold, continue statin Hyperlipidemia Continue pravastatin VS,Fishbone, I+O VS, Fishbone, I+O Laboratory Tests 07/29/20 18:26 07/29/20 23:49 07/30/20 06:03 Vital Signs Date Time Temp Pulse Resp B/P (MAP) Pulse Ox O2 Delivery O2 Flow Rate FiO2 07/30/20 09:05 160/78 07/30/20 06:00 98.6 67 18 95 Room Air I&O- Last 24 Hours up to 6 AM 07/30/20 06:00 Intake Total 300 ml Output Total 800 ml Balance -500 ml LIZETT FAITH DO Jul 30, 2020 12:11
[2020-07-30 14:00] VITALS: BP 103/58
[2020-07-30] MEDS: POLYVINYL ALCOHOL OPHTH SOLN 15 ML(LIQUITEARS) OU SCH (14:37)
[2020-07-30 18:11] LABS: HEMATOCRIT 34.6 % (36.0-47.0); HEMOGLOBIN 11.1 g/dl (12.0-15.5)
[2020-07-30 20:00] VITALS: BP 101/61
[2020-07-30] MEDS: PRAVASTATIN 20 MG TAB PO SCH (20:26)
[2020-07-31 00:17] LABS: HEMATOCRIT 29.4 % (36.0-47.0); HEMOGLOBIN 9.5 g/dl (12.0-15.5)
[2020-07-31] MEDS: PANTOPRAZOLE 40MG VIAL (C9113 PER 1) IV SCH (02:14)
[2020-07-31 06:00] VITALS: BP 116/67
[2020-07-31 06:26] LABS: HEMATOCRIT 30.9 % (36.0-47.0); HEMOGLOBIN 10.2 g/dl (12.0-15.5)
[2020-07-31 07:51] VITALS: BP 116/67
[2020-07-31] MEDS: LOSARTAN 50MG TABLET PO SCH (07:51)
[2020-07-31] MEDS: SUCRALFATE 1 GM TAB PO SCH (07:51)
[2020-07-31] MEDS: DOCUSATE SODIUM 100MG CAPSULE PO SCH (07:51)
[2020-07-31] MEDS: POLYVINYL ALCOHOL OPHTH SOLN 15 ML(LIQUITEARS) OU SCH (07:51)
[2020-07-31] MEDS ORDERED: SUCR1TA PO (10:32)
[2020-07-31] MEDS ORDERED: PANT20TA6 PO (10:32)
--- NOTE | 2020-07-31 16:05 | DS.PDOC ---
Discharge Summary General Date of Admission Jul 29, 2020 at 01:01 Date of Discharge 07/31/20 Discharge Summary PROCEDURES PERFORMED DURING STAY: [None]. ADMITTING DIAGNOSES: Acute anemia secondary to GI bleed Hypertension History of TIA with history of subarachnoid hemorrhage 2019 Hyperlipidemia DISCHARGE DIAGNOSES: Acute anemia secondary to GI bleed Hypertension History of TIA with history of subarachnoid hemorrhage 2019 Hyperlipidemia COMPLICATIONS/CHIEF COMPLAINT: Lower Gi Bleed. HISTORY OF PRESENT ILLNESS: 89-year-old female history of hypertension, hyperlipidemia, GERD, recurrent TIAs, and a history of subarachnoid hemorrhage in 2019 who presents with a reported one week history of bright red blood per rectum with every bowel movement. Patient wishes to have limited medical interventions but accepts receiving blood if needed. Patient admitted for monitoring of GI bleed and transfusing as necessary. HOSPITAL COURSE: During this hospital stay the following issue addressed Acute anemia secondary to GI bleed Hemoglobin stable of 9.7 Continue IV Protonix, sucralfate 3 times a day Patient refused colonoscopy and endoscopy Hypertension Resume losartan History of TIA with history of subarachnoid hemorrhage 2018 Plavix on hold, continue statin Hyperlipidemia Continue pravastatin DISCHARGE MEDICATIONS: Please see below. ALLERGIES: Please see below. PHYSICAL EXAMINATION ON DISCHARGE: VITAL SIGNS: Please see below. GENERAL APPEARANCE: NAD HEENT: no scleral icterus, no JVD, EOMI CARDIOVASCULAR: S1S2 LUNGS: CTA ABDOMEN: soft & not tender w palpitation MUSCULOSKELETAL: no cyanosis, no swelling INTEGUMENT: no generalized pallor NEUROLOGICAL: cranial nerve function from 2-12 intact intact, follows commands, speech not dysarthric LABORATORY DATA: Please see below. PROGNOSIS: Fair ACTIVITY: [As tolerated]. DIET: Cardiac DISPOSITION: Home, Self-Care. ITEMS TO FOLLOWUP ON ON OUTPATIENT: Follow-up with PCP in 3-5 days DISCHARGE CONDITION: [Stable]. TIME SPENT ON DISCHARGE: 30 minutes. Vital Signs/I&Os Vital Signs Date Time Temp Pulse Resp B/P (MAP) Pulse Ox O2 Delivery O2 Flow Rate FiO2 07/31/20 07:51 116/67 07/31/20 06:00 97.8 69 15 98 Room Air I&O- Last 24 Hours up to 6 AM 07/31/20 05:59 Intake Total 1540 ml Output Total 0 ml Balance 1540 ml Laboratory Data CBC/BMP Laboratory Tests 07/30/20 17:56 07/30/20 23:53 07/31/20 05:40 Discharge Medications Scheduled Carboxymethylcellulose Sodium (Refresh Tears) 0.5 % Aravind, 1 DROP OU DAILY, (Reported) Clopidogrel Bisulfate (Clopidogrel) 75 Mg Tablet, 75 MG PO DAILY, (Reported) Losartan Potassium (Losartan Potassium) 50 Mg Tablet, 50 MG PO DAILY, (Reported) Pantoprazole Sodium (Pantoprazole Sodium) 20 Mg Tab, 40 MG PO DAILY Pravastatin Sodium (Pravastatin Sodium) 40 Mg Tab, 40 MG PO QHS, (Reported) Sucralfate (Sucralfate) 1 Gm Tablet, 1 GM PO TID Miscellaneous Medications [med rec comment] , (Reported) unable to verify with pt. used external med history Allergies Coded Allergies: No Known Allergies (Unverified , 04/28/18) LIZETT FAITH DO Jul 31, 2020 16:05
== END 2020-07-31 14:00 | disposition home or self-care (01) | DRG 378 ==
LOC: M ED 20:34 → M ED INP 07-29 01:01 → ENRESERV 07-29 01:49 → M MS5PR 07-29 02:31
PROVIDERS: ADMIT Family Medicine; ATTEND Internal Medicine
DX: K62.5 Hemorrhage of anus and rectum (principal); D62 Acute posthemorrhagic anemia; N17.9 Acute kidney failure, unspecified; I10 Essential (primary) hypertension; Z86.73 Personal history of transient ischemic attack (TIA), and cerebral infarction without residual deficits; E78.5 Hyperlipidemia, unspecified; K21.9 Gastro-esophageal reflux disease without esophagitis; Z79.899 Other long term (current) drug therapy

== ENCOUNTER → 2020-08-30 | Outpatient (REF) | payer MEDICARE, OTHER ==
[~2020-08-30] MED LIST changes: +LOSA50TA88 PO; +SUCR1TA PO; +med rec comment
[2020-08-30 16:47] LABS: HEMATOCRIT 35.5 % (36.0-47.0); HEMOGLOBIN 11.2 g/dl (12.0-15.5); MEAN CORPUSCULAR HEMOGLOBIN 30.5 pg (27.0-33.0); MEAN CORPUSCULAR HGB CONC 31.5 g/dl (32.0-36.5); MEAN CORPUSCULAR VOLUME 96.7 fl (80.0-96.0); PLATELET COUNT, AUTOMATED 302 10^3/uL (150-450); RED BLOOD COUNT 3.67 10^6/uL (4.00-5.40); WHITE BLOOD COUNT 5.8 10^3/uL (4.0-10.0)
== END ==
LOC: M LAB REF 16:23
PROVIDERS: ATTEND Family Medicine
DX: K92.1 Melena (principal)

== ENCOUNTER → 2021-02-07 | Outpatient (REF) | payer MEDICARE, OTHER ==
[~2021-02-07] MED LIST changes: +LOSA100T45 PO; -LOSA100T50 PO; +LOSA50TA28 PO; -LOSA50TA88 PO
[2021-02-07 11:00] LABS: HEMATOCRIT 40.9 % (36.0-47.0); HEMOGLOBIN 13.1 g/dl (12.0-15.5); MEAN CORPUSCULAR HEMOGLOBIN 29.2 pg (27.0-33.0); MEAN CORPUSCULAR VOLUME 91.1 fl (80.0-96.0); PLATELET COUNT, AUTOMATED 313 10^3/uL (150-450); RED BLOOD COUNT 4.49 10^6/uL (4.00-5.40); WHITE BLOOD COUNT 8.3 10^3/uL (4.0-10.0)
[2021-02-07 11:45] LABS: ALBUMIN 3.2 GM/DL (3.2-5.2); BILIRUBIN,DIRECT 0.2 MG/DL (0.0-0.2); BILIRUBIN,TOTAL 0.4 MG/DL (0.2-1.0); CALCIUM LEVEL 9.6 MG/DL (8.8-10.2); CREATININE FOR GFR 1.04 MG/DL (0.55-1.30); GLOMERULAR FILTRATION RATE 53.2 (>32); POTASSIUM SERUM 4.3 MEQ/L (3.5-5.1); THYROID STIMULATING HORMONE 3.62 uIU/ML (0.358-3.740); TOTAL PROTEIN 7.6 GM/DL (6.4-8.2)
== END ==
PROVIDERS: ATTEND Physician Assistant
DX: I10 Essential (primary) hypertension (principal)

== ENCOUNTER → 2021-02-07 | Outpatient (CLI) | payer MEDICARE, OTHER ==
[~2021-02-07] MED LIST changes: -LOSA100T45 PO; +LOSA100T50 PO; -LOSA50TA28 PO; +LOSA50TA88 PO
--- NOTE | 2021-02-07 16:30 | REP ---
INDICATION: PAIN IN HIPS NO FALL/INJURY. COMPARISON: None. TECHNIQUE: A single AP view of the pelvis was performed. FINDINGS: There is advanced right hip degenerative change with marked asymmetric hip joint space narrowing, subchondral sclerosis, subchondral cyst formation, and prominent marginal osteophytosis. There is evidence of an abnormal lucency and increased density seen in the right femoral neck. Advanced chronic degenerative changes are also seen involving the sacroiliac joints and imaged portion the spine. More moderate degenerative changes are seen involving the left hip. IMPRESSION: 1. Possible age undetermined right femoral neck fracture. Follow-up with CT is recommended. 2. Chronic changes as described above. <Electronically signed by Kameron Bloom > 02/07/21 [id number]
== END ==
PROVIDERS: ATTEND Internal Medicine
DX: M16.0 Bilateral primary osteoarthritis of hip (principal); M25.751 Osteophyte, right hip

== ENCOUNTER → 2021-05-14 | Outpatient (REF) | payer MEDICARE, OTHER ==
[~2021-05-14] MED LIST changes: +LOSA100T45 PO; -LOSA100T50 PO; +LOSA50TA28 PO; -LOSA50TA88 PO
[2021-05-14 13:07] LABS: HEMOGLOBIN 11.5 g/dl (12.0-15.5); MEAN CORPUSCULAR HEMOGLOBIN 29.7 pg (27.0-33.0); MEAN CORPUSCULAR HGB CONC 31.9 g/dl (32.0-36.5); PLATELET COUNT, AUTOMATED 352 10^3/uL (150-450); RED BLOOD COUNT 3.87 10^6/uL (4.00-5.40); WHITE BLOOD COUNT 7.1 10^3/uL (4.0-10.0)
[2021-05-14 13:45] LABS: ALBUMIN 3.3 GM/DL (3.2-5.2); BILIRUBIN,DIRECT 0.1 MG/DL (0.0-0.2); BILIRUBIN,TOTAL 0.4 MG/DL (0.2-1.0); CALCIUM LEVEL 9.3 MG/DL (8.8-10.2); GLOMERULAR FILTRATION RATE 55.6 (>32); POTASSIUM SERUM 4.9 MEQ/L (3.5-5.1); THYROID STIMULATING HORMONE 3.97 uIU/ML (0.358-3.740); TOTAL PROTEIN 7.4 GM/DL (6.4-8.2)
== END ==
PROVIDERS: ATTEND Internal Medicine
DX: E56.9 Vitamin deficiency, unspecified (principal); Z79.899 Other long term (current) drug therapy

== ENCOUNTER → 2021-06-11 | Outpatient (REF) | payer MEDICARE, OTHER | PROVIDERS: ATTEND Internal Medicine | DX: R05.9 Cough, unspecified (principal) ==

== ENCOUNTER → 2021-08-15 | Outpatient (REF) | payer MEDICARE, OTHER ==
[2021-08-15 11:24] LABS: HEMATOCRIT 34.2 % (36.0-47.0); HEMOGLOBIN 10.7 g/dl (12.0-15.5); MEAN CORPUSCULAR HEMOGLOBIN 28.5 pg (27.0-33.0); MEAN CORPUSCULAR HGB CONC 31.3 g/dl (32.0-36.5); PLATELET COUNT, AUTOMATED 345 10^3/uL (150-450); RED BLOOD COUNT 3.76 10^6/uL (4.00-5.40); WHITE BLOOD COUNT 6.7 10^3/uL (4.0-10.0)
[2021-08-15 12:02] LABS: CREATININE FOR GFR 0.98 MG/DL (0.55-1.30); GLOMERULAR FILTRATION RATE 56.9 (>32); POTASSIUM SERUM 4.3 MEQ/L (3.5-5.1)
== END ==
PROVIDERS: ATTEND Internal Medicine
DX: J98.8 Other specified respiratory disorders (principal)

== ENCOUNTER → 2022-02-11 | Outpatient (REF) | payer MEDICARE, OTHER ==
[2022-02-11 11:15] LABS: HEMOGLOBIN 11.7 g/dl (12.0-15.5); MEAN CORPUSCULAR HGB CONC 30.8 g/dl (32.0-36.5); MEAN CORPUSCULAR VOLUME 94.3 fl (80.0-96.0); PLATELET COUNT, AUTOMATED 339 10^3/uL (150-450); RED BLOOD COUNT 4.03 10^6/uL (4.00-5.40); WHITE BLOOD COUNT 5.6 10^3/uL (4.0-10.0)
[2022-02-11 11:37] LABS: BLOOD UREA NITROGEN 12 MG/DL (9-23); CALCIUM LEVEL 9.2 MG/DL (8.3-10.6); CARBON DIOXIDE LEVEL 25 MMOL/L (20-31); CHLORIDE LEVEL 102 MMOL/L (98-107); GLOMERULAR FILTRATION RATE > 60.0 (>32); GLUCOSE, FASTING 94 MG/DL (74-106); POTASSIUM SERUM 4.3 MMOL/L (3.5-5.1); SODIUM LEVEL 139 MMOL/L (136-145)
== END ==
PROVIDERS: ATTEND Internal Medicine
DX: E56.9 Vitamin deficiency, unspecified (principal)

== ENCOUNTER → 2022-02-25 | Outpatient (REF) | payer MEDICARE, OTHER ==
[2022-02-25 09:27] LABS: HEMATOCRIT 37.6 % (36.0-47.0); HEMOGLOBIN 11.7 g/dl (12.0-15.5); MEAN CORPUSCULAR HEMOGLOBIN 29.8 pg (27.0-33.0); MEAN CORPUSCULAR HGB CONC 31.1 g/dl (32.0-36.5); MEAN CORPUSCULAR VOLUME 95.9 fl (80.0-96.0); PLATELET COUNT, AUTOMATED 356 10^3/uL (150-450); RED BLOOD COUNT 3.92 10^6/uL (4.00-5.40)
[2022-02-25 09:45] LABS: BLOOD UREA NITROGEN 13 MG/DL (9-23); CARBON DIOXIDE LEVEL 24 MMOL/L (20-31); CHLORIDE LEVEL 103 MMOL/L (98-107); CREATININE FOR GFR 0.79 MG/DL (0.55-1.30); GLOMERULAR FILTRATION RATE > 60.0 (>32); GLUCOSE, FASTING 93 MG/DL (74-106); POTASSIUM SERUM 4.4 MMOL/L (3.5-5.1); SODIUM LEVEL 140 MMOL/L (136-145)
== END ==
PROVIDERS: ATTEND Internal Medicine
DX: E56.9 Vitamin deficiency, unspecified (principal)